=== PATIENT | female | born 1935 | race Caucasian/White ===

== ENCOUNTER 2016-04-30 | Emergency (ER) | payer MEDICARE, OTHER | END 2016-04-30 12:38 | disposition home or self-care (01) ==

== ENCOUNTER 2016-08-08 13:19 | Outpatient (CLI) | payer MEDICARE, OTHER ==
--- NOTE | 2016-08-09 17:09 | Mammography Report ---
DIGITAL SCREENING MAMMOGRAM: 08/08/2016 CLINICAL INDICATION: A 81-year-old nulliparous patient with history of benign biopsy for screening. COMPARISON: 07/2015, 01/2014, 07/2012, 07/2011, 05/2010, 03/2009, 03/2008, 03/2007. TECHNIQUE: Routine CC and MLO projections were obtained of the breasts. The breasts again demonstrate heterogeneously dense fibroglandular parenchyma bilaterally. Coarse an d punctate, typically benign calcifications are present. No suspicious masses, clustered microcalcif ications, or regions of architectural distortion are identified. IMPRESSION: BENIGN FINDINGS. RECOMMENDATION: ROUTINE ANNUAL SCREENING UNLESS OTHERWISE CLINICALLY INDICATED. BIRADS CATEGORY: 2, BENIGN FINDINGS. STANDARD QUALIFYING STATEMENTS 1. This examination was reviewed with the aid of Computed-Aided Detection (CAD). 2. A negative or benign imaging report should not delay biopsy if clinically suspicious findings are present. Consider surgical consultation if warranted. More than 5% of cancers are not identified b y imaging. 3. Dense breasts may obscure an underlying neoplasm. JOB #: [id number] EXT [id number] #:[id number]
== END 2016-08-08 13:20 | disposition home or self-care (01) ==
LOC: DI.S 13:19
PROVIDERS: ATTEND Physician Assistant
DX: Z12.31 Encounter for screening mammogram for malignant neoplasm of breast (principal)
CPT/HCPCS: 77067

== ENCOUNTER 2017-05-29 07:17 | Outpatient (CLI) | payer MEDICARE, OTHER ==
--- NOTE | 2017-05-29 17:58 | MRI Report ---
EXAM: RIGHT SHOULDER MRI WITHOUT CONTRAST EXAM DATE: 05/29/2017 09:01 AM. CLINICAL HISTORY: Shoulder pain and decreased range of motion. Concern for biceps tendon tear. COMPARISON: None. TECHNIQUE: Multiplanar, multisequence T1-weighted and fluid-sensitive sequences of the shoulder witho ut contrast. Other: None. FINDINGS: Rotator Cuff: Full thickness tear of the distal supraspinatus at and adjacent to the insertion. The f ull-thickness component measures approximately 0.8 cm anteroposterior and 1.1 cm medial to lateral. M ore extensive associated distal articular surface component measuring 1.7 cm anteroposterior and 0.5 cm medial to lateral. Moderate edema and thickening involving distal fibers of the supraspinatus, upp er infraspinatus, and upper subscapularis. Minimal atrophy involving the supraspinatus. No significan t rotator cuff muscle fatty replacement. Long Head Biceps Tendon: The long head biceps tendon appears torn and retracted. On axial images the upper margin of the torn retracted tendon is located approximately 7.5 cm below the roof of the bicip ital groove. There is an ill-defined fragment of the biceps tendon retaining attachment at the superi or labrum. This is a somewhat globular area of soft tissue signal that measures approximately 1.0 x 0 .9 x 0.5 cm. Labrum: Degenerative appearance of the superior labrum. No discrete labral tear is demonstrated. Bones and Articular Surfaces: Mild cartilage thinning over some areas of the humeral head. No full th ickness articular cartilage defects. Acromioclavicular Joint: Moderate degenerative change with osteophyte formation, bone and capsular hy pertrophy. Type II acromion. Subacromial enthesophyte formation. IMPRESSION: 1. Full-thickness tear of the distal supraspinatus measuring 0.8 x 1.1 cm. 2. Moderate tendinosis involving the supraspinatus, upper fibers of the infraspinatus and subscapular is. 3. Tear of the long head biceps tendon retracted 7.5 cm below the roof of the bicipital groove. Fragm ent of the tendon appears to retain attachment at the biceps anchor. 4. Moderate degenerative change at the acromioclavicular joint. [facility] MUSCULOSKELET[facility]IOLOG[facility] SECTION Referring Provider Line: [phone] SITE ID: [id number]
--- NOTE | 2017-05-29 22:05 | MRI Report ---
EXAM: LEFT SHOULDER MRI WITHOUT CONTRAST EXAM DATE: 05/29/2017 09:01 AM. CLINICAL HISTORY: Left shoulder pain and decreased range of motion. COMPARISON: None. TECHNIQUE: Multiplanar, multisequence T1-weighted and fluid-sensitive sequences of the shoulder witho ut contrast. Other: None. FINDINGS: Acromioclavicular Region: The acromion is type II. There are enthesophytes at the inferior surface of the acromion. Mild to moderate acromioclavicular joint osteoarthritis. The coracoacromial and coraco clavicular ligaments are intact. Small amount fluid within the subacromial/subdeltoid bursa. There is an approximately 1.7 x 2.0 x 0.4 cm focus of tissue within the anterior aspect of the subdeltoid bur sa. Glenohumeral Region: No subluxation. Small joint effusion. The articular cartilage is unremarkable. T he glenohumeral ligaments and joint capsule are unremarkable. Bone Marrow: Mild subcortical marrow edema at the greater tuberosity. No acute fracture or bone lesio ns. Labrum: Degenerative free edge fraying at the superior labrum. No definite tear is seen on this non-a rthrographic exam. Musculature/Rotator Cuff: There is an approximately 1.8 cm AP by 1.6 cm medial to lateral full-thickn ess, near full-width tear of the supraspinatus tendon. Tendinosis at the remaining supraspinatus tend on. Infraspinatus tendinosis. Teres minor tendon is unremarkable. Distal subscapularis tendinosis. Gr anders 1 fatty atrophy of supraspinatus, infraspinatus, and subscapularis muscles. Biceps Tendon: Tendinosis at the proximal end of the long head biceps tendon. High-grade partial tear within the remaining long head biceps tendon. Other: The subcutaneous tissues are unremarkable. IMPRESSION: 1. A 1.8 x 1.6 cm full-thickness, near full-width tear of the supraspinatus tendon. Tendinosis at the remaining supraspinatus, infraspinatus, and distal subscapularis tendons. Grade 1 fatty atrophy of t he supraspinatus, infraspinatus, and subscapularis muscles. 2. Mild to moderate acromioclavicular joint osteoarthritis. 3. Small amount of fluid at the subacromial subdeltoid bursa. There is a 1.7 x 2.0 x 0.4 cm focus of tissue within the anterior aspect of the subdeltoid bursa which may represent focal synovial thickeni ng or debris. 4. Degenerative free edge fraying of the superior labrum. 5. Tendinosis at the proximal end of the long head biceps tendon and high-grade partial tear within t he remaining long head biceps tendon. [facility] MUSCULOSKELET[facility]IOLOGY SECTION Referring Provider Line: [phone] SITE ID: [id number]
== END 2017-05-29 07:18 | disposition home or self-care (01) ==
LOC: DI 07:17
PROVIDERS: ATTEND Physician Assistant
DX: M75.101 Unspecified rotator cuff tear or rupture of right shoulder, not specified as traumatic (principal); S46.111A Strain of muscle, fascia and tendon of long head of biceps, right arm, initial encounter; M19.011 Primary osteoarthritis, right shoulder; M67.911 Unspecified disorder of synovium and tendon, right shoulder; M75.102 Unspecified rotator cuff tear or rupture of left shoulder, not specified as traumatic; M19.012 Primary osteoarthritis, left shoulder; S46.112A Strain of muscle, fascia and tendon of long head of biceps, left arm, initial encounter; M67.912 Unspecified disorder of synovium and tendon, left shoulder

== ENCOUNTER 2017-07-02 07:44 | Emergency (ER) | payer MEDICARE, OTHER ==
[2017-07-02] MEDS ORDERED: SODIUM CHLORIDE 0.9% 1,000 ML IV ONE (08:07)
--- NOTE | 2017-07-02 08:10 | ED Physician Documentation ---
History of Present Illness - Stated complaint Stated Complaint: WEAKNESS - Chief complaint Chief Complaint: General - History obtained from History obtained from: Patient, Friend - History of Present Illness Timing: Today - Additonal information Additional information: 82-year-old female was in her usual state of health yesterday feeling well and had a friend over had a glass of wine and some dinner and this morning when she woke up she felt weak and was noted to be pale by her friend. She states that in route to the hospital she vomited once she felt this was due to carsickness. The friend indicates that the patient has been down this road numerous times without ever having this bother her. The patient states that her alcohol consumption is infrequent and small volume. She does not recall exactly the last time that she had alcohol. She has not had reaction alcohols similar to this previously. She denies any other current illness she denies coffee grounds in the emesis that she had this morning. Review of Systems Constitutional: reports: Fatigue, Sweats. denies: Fever, Chills Eyes: denies: Decreased vision Ears: denies: Ear pain Nose: denies: Rhinorrhea / runny nose, Congestion Throat: denies: Sore throat Cardiac: denies: Chest pain / pressure, Palpitations Respiratory: denies: Dyspnea, Cough GI: reports: Nausea, Vomiting. denies: Abdominal Pain, Constipation, Diarrhea : denies: Dysuria, Frequency Skin: denies: Rash Musculoskeletal: denies: Neck pain, Back pain, Extremity pain Neurologic: reports: Generalized weakness. denies: Focal weakness, Numbness PD PAST MEDICAL HISTORY - Past Medical History Cardiovascular: High cholesterol Respiratory: None Endocrine/Autoimmune: None GI: Colon polyps : None HEENT: None Psych: Anxiety Musculoskeletal: None Derm: None - Past Surgical History Past Surgical History: Yes General: Cholecystectomy, Appendectomy, Colonoscopy /TRANSMISSION SPECIALIST: Other - Present Medications Home Medications: Ambulatory Orders Medication Instructions Recorded Confirmed Escitalopram [Lexapro] 10 mg PO DAILY 01/23/13 09/22/15 Trazodone HCl 25 mg PO HS 01/23/13 09/22/15 Cholecalciferol (Vitamin D3) 1,000 unit PO DAILY 09/21/15 09/22/15 [Vitamin D3] Meclizine HCl [Bonine] 25 mg PO DAILY 09/21/15 09/22/15 Multivitamin [Multivitamins] 1 each PO DAILY 09/21/15 09/22/15 Rosuvastatin Calcium [Crestor] 20 mg PO DAILY 09/21/15 09/22/15 Vitamin E 1,000 unit PO DAILY 09/21/15 09/22/15 - Allergies Allergies/Adverse Reactions: Allergies Allergy/AdvReac Type Severity Reaction Status Date / Time oxycodone HCl * Allergy Intermediate Nausea Verified 01/24/13 09:46 [From Percodan] oxycodone terephthalate * Allergy Intermediate Nausea Verified 01/24/13 09:46 [From Percodan] Sulfa (Sulfonamide Allergy Intermediate Rash Verified 01/24/13 12:35 Antibiotics) codeine [Codeine] AdvReac Intermediate Emesis Verified 01/24/13 09:46 oxycodone [Oxycodone] AdvReac Intermediate Emesis Verified 01/24/13 09:46 - Social History Does the pt smoke?: No Smoking Status: Never smoker Does the pt drink ETOH?: Yes Does the pt have substance abuse?: No - Immunizations Immunizations are current?: Yes PD ED PE NORMAL - Vitals Vital signs reviewed: Yes (Normal) - General General: Alert and oriented X 3, No acute distress, Well developed/nourished, Other (Pale appearing female in no distress) - HEENT HEENT: Atraumatic, PERRL, EOMI, Ears normal, Pharynx benign, Other (Dry mucous membranes) - Neck Neck: Supple, no meningeal sign, No bony TTP - Cardiac Cardiac: RRR, No murmur - Respiratory Respiratory: No respiratory distress, Clear bilaterally - Abdomen Abdomen: Soft, Non tender - Back Back: No CVA TTP, No spinal TTP - Derm Derm: Normal color, Warm and dry, No rash - Extremities Extremities: No deformity, Normal ROM s pain, No edema, No calf tenderness / cord - Neuro Neuro: Alert and oriented X 3, No motor deficit, No sensory deficit, Normal speech Eye Opening: Spontaneous Motor: Obeys Commands Verbal: Oriented GCS Score: 15 - Psych Psych: Normal mood, Normal affect Results - Vitals Vitals: Vital Signs - 24 hr 07/02/17 07/02/17 07:51 11:29 Temperature 35.5 C L 36.4 C L Heart Rate 62 57 L Respiratory 16 15 Rate Blood Pressure 121/65 141/76 H O2 Saturation 99 100 Oxygen O2 Source Room air - Labs Labs: Laboratory Tests 07/02/17 07/02/17 07/02/17 08:20 08:20 08:20 WBC 7.6 RBC 4.16 L Hgb 11.9 L Hct 35.6 L MCV 85.8 MCH 28.7 MCHC 33.5 RDW 15.2 H Plt Count 354 MPV 6.6 L Neut # 4.8 Lymph # 2.2 Trimble # 0.6 Eos # 0.1 Baso # 0.0 Absolute Nucleated RBC 0.00 Nucleated RBC % 0.0 Sodium 134 L Potassium 3.8 Chloride 100 L Carbon Dioxide 26 Anion Gap 8.0 BUN 28 H Creatinine 0.8 Estimated GFR (MDRD) 69 L Glucose 122 H Calcium 8.8 Total Bilirubin 0.5 AST 18 ALT 13 Alkaline Phosphatase 100 Troponin I < 0.04 Total Protein 7.8 Albumin 4.1 Globulin 3.7 Albumin/Globulin Ratio 1.1 Lipase 11 L Urine Color Urine Clarity Urine pH Ur Specific [place] Urine Protein Urine Glucose (UA) Urine Ketones Urine Occult Blood Urine Nitrite Urine Bilirubin Urine Urobilinogen Ur Leukocyte Esterase Ur Microscopic Review Urine Culture Comments Ethyl Alcohol < 5.0 07/02/17 10:50 WBC RBC Hgb Hct MCV MCH MCHC RDW Plt Count MPV Neut # Lymph # [place]ble # Eos # Baso # Absolute Nucleated RBC Nucleated RBC % Sodium Potassium Chloride Carbon Dioxide Anion Gap BUN Creatinine Estimated GFR (MDRD) Glucose Calcium Total Bilirubin AST ALT Alkaline Phosphatase Troponin I Total Protein Albumin Globulin Albumin/Globulin Ratio Lipase Urine Color YELLOW Urine Clarity CLEAR Urine pH 7.0 Ur Specific [place] 1.020 Urine Protein NEGATIVE Urine Glucose (UA) NEGATIVE Urine Ketones NEGATIVE Urine Occult Blood TRACE-LYSE Urine Nitrite NEGATIVE Urine Bilirubin NEGATIVE Urine Urobilinogen 0.2 (NORMAL) Ur Leukocyte Esterase NEGATIVE Ur Microscopic Review NOT INDICATED Urine Culture Comments NOT INDICATED Ethyl Alcohol Procedures - IVC sono (time) 0805 Bedside IVC sono: IVC measures (cm) (0.88), IVC collapsed c insp (cm) (complete) , Dehydration (ext 2 liter deficit) PD MEDICAL DECISION MAKING - ED course Complexity details: reviewed old records, reviewed results, re-evaluated patient , considered differential, d/w patient, d/w family ED course: 82-year-old female with a chief complaint of weakness arrives to the emergency department appearing pale and with a history of a consumption of a small amount of wine last night. She is found to be dehydrated on interrogation of the inferior vena cava and IV is begun and fluids are administered. No specific findings with the exception of an elevated BUN are found. Her symptoms are consistent with dehydration and she is hydrated here in the Ed./ Departure - Departure Disposition: 01 Home, Self Care Clinical Impression: Dehydration Condition: Stable Instructions: ED Dehydration Follow-Up: Mayelin Chaney PA [Primary Care Provider] - Discharge Date/Time: 07/02/17 11:34
[2017-07-02 08:33] LABS: BASOPHILS % (AUTO) 0.3 %; EOSINOPHILS # (AUTO) 0.1 10^3/uL (0.0-0.7); EOSINOPHILS % (AUTO) 0.8 %; HGB - HEMOGLOBIN 11.9 g/dL (12.0-16.0); LYMPHOCYTES # (AUTO) 2.2 10^3/uL (1.5-3.5); LYMPHOCYTES % (AUTO) 28.6 %; MEAN CORPUSCULAR HEMOGLOBIN 28.7 pg (27.0-31.0); MEAN CORPUSCULAR HGB CONC 33.5 g/dL (32.0-36.0); MEAN CORPUSCULAR VOLUME 85.8 fL (81.0-99.0); MEAN PLATELET VOLUME 6.6 fL (7.9-10.8); MONOCYTES # (AUTO) 0.6 10^3/uL (0.0-1.0); NEUTROPHILS # (AUTO) 4.8 10^3/uL (1.5-6.6); NEUTROPHILS % (AUTO) 62.3 %; PLT - PLATELET COUNT 354 10^3/uL (130-450); RED BLOOD COUNT 4.16 10^6/uL (4.20-5.40); RED CELL DISTRIBUTION WIDTH 15.2 % (12.0-15.0); WHITE BLOOD COUNT 7.6 x10^3/uL (4.8-10.8)
[2017-07-02 08:44] LABS: ALBUMIN 4.1 g/dL (3.2-5.5); ALBUMIN/GLOBULIN RATIO 1.1 (1.0-2.2); ALKALINE PHOSPHATASE 100 IU/L (42-121); ALT ALANINE AMINOTRANSFERASE 13 IU/L (10-60); AST ASPARTATE AMINOTRANSFERASE 18 IU/L (10-42); BILIRUBIN,TOTAL 0.5 mg/dL (0.2-1.0); BUN - BLOOD UREA NITROGEN 28 mg/dL (6-20); CALCIUM 8.8 mg/dL (8.5-10.3); CARBON DIOXIDE - CO2 26 mmol/L (21-32); CHLORIDE 100 mmol/L (101-111); CREATININE 0.8 mg/dL (0.4-1.0); GFR - MDRD 69 (>89); GLUCOSE 122 mg/dL (70-100); LIPASE 11 U/L (22-51); SODIUM 134 mmol/L (135-145); TOTAL PROTEIN 7.8 g/dL (6.7-8.2)
[2017-07-02] MEDS ORDERED: SODIUM CHLORIDE 0.9% 500 ML IV ONE (10:12)
[2017-07-02 11:00] LABS: BILIRUBIN,URINE NEGATIVE (NEGATIVE); GLUCOSE, URINE (UA) NEGATIVE (NEGATIVE); KETONES,URINE (UA) NEGATIVE (NEGATIVE); LEUKOCYTE ESTERASE, URINE NEGATIVE (NEGATIVE); NITRITE,URINE NEGATIVE (NEGATIVE); OCCULT BLOOD,URINE TRACE-LYSE (NEGATIVE); PROTEIN,URINE NEGATIVE (NEGATIVE); UROBILINOGEN,URINE 0.2 (NORMAL) E.U./dL (NORMAL)
[2017-07-02 11:02] LABS: CLARITY,URINE CLEAR (CLEAR)
[2017-07-02 11:34] VITALS: BP 141/76
== END 2017-07-02 11:34 | disposition home or self-care (01) ==
LOC: ED 07:44
DX: E86.0 Dehydration (principal); E78.00 Pure hypercholesterolemia, unspecified
CPT/HCPCS: 36415; 80053; 81003; 83690; 84484; 85025; 96360; 99283; 99284; G0480; 80320; 81001; 87086

== ENCOUNTER 2017-08-27 08:13 | Outpatient (CLI) | payer MEDICARE, OTHER ==
--- NOTE | 2017-08-28 11:03 | Mammography Report ---
BILATERAL SCREENING MAMMOGRAM: 08/27/2017 TECHNIQUE: Bilateral digital CC, exaggerated CC and MLO projections. COMPARISON: 08/08/2016, 08/03/2015, 02/03/2014 and 07/24/2012. FINDINGS: The breast tissue is heterogeneously dense. No dominant mass, architectural distortion, skin thickening, suspicious microcalcifications or interval change. IMPRESSION: NEGATIVE. BI-RADS CODE 1-NEGATIVE. SUGGEST RETURN TO ROUTINE SCREENING IN 12 MONTHS. STANDARD QUALIFYING STATEMENTS: 1. This examination was reviewed with the aid of Computer-Aided Detection (CAD). 2. A negative or benign imaging report should not delay biopsy if clinically suspicious findings are present. Consider surgical consultation if warranted. More than 5% of cancers are not identified by imaging. 3. Dense breasts may obscure an underlying neoplasm. TD: 08/28/2017 10:00
== END 2017-08-27 08:14 | disposition home or self-care (01) ==
LOC: DI.S 08:13
PROVIDERS: ATTEND Physician Assistant
DX: Z12.31 Encounter for screening mammogram for malignant neoplasm of breast (principal)
CPT/HCPCS: 77067

== ENCOUNTER 2018-08-27 07:37 | Outpatient (CLI) | payer MEDICARE, OTHER ==
--- NOTE | 2018-08-27 08:37 | Mammography Report ---
Reason: SCREENING MAMMO Procedure Date: 08/27/2018 Accession Number: [id number] / [id number] Procedure: M[facility] - Screening Mammo w/Héctor CPT Code: FULL RESULT: EXAM: Screening Mammo w/Héctor DATE: 08/27/2018 8:31 AM CLINICAL HISTORY: Screening encounter. History of early menses and nulliparity. TECHNIQUE: (B) - Bilateral CC and MLO views were obtained. A right laterally exaggerated CC views obtained. COMPARISON: 08/27/2017 through 02/03/2014. PARENCHYMAL PATTERN: (A) - The breast(s) demonstrate(s) scattered fibroglandular densities. FINDINGS: There are coarse typically benign calcifications. There are no suspicious masses, calcifications, or areas of distortion. IMPRESSION: Benign findings. BI-RADS category 2. RECOMMENDATION: (ANNUAL) - Recommend routine annual screening mammography. BI-RADS CATEGORY: (2) - Benign Findings. STANDARD QUALIFYING STATEMENTS: 1. This examination was not reviewed with the aid of Computer-Aided Detection (CAD). 2. A negative or benign imaging report should not preclude biopsy if clinically suspicious findings are present. 3. Dense breasts may obscure an underlying neoplasm. 4. This examination was reviewed with the aid of 3D breast imaging (tomosynthesis).
== END 2018-08-27 07:38 | disposition home or self-care (01) ==
LOC: DI 07:37
DX: Z12.31 Encounter for screening mammogram for malignant neoplasm of breast (principal)
CPT/HCPCS: 77063; 77067

== ENCOUNTER 2019-07-13 09:44 | Outpatient (CLI) | payer MEDICARE, OTHER ==
--- NOTE | 2019-07-13 12:41 | Ultrasound Report ---
Reason: RT KNEE PAIN Procedure Date: 07/13/2019 Accession Number: [id number] / [id number] Procedure: US - Duplex Ext Veins Right CPT Code: Final Report FULL RESULT: EXAM: RIGHT LOWER EXTREMITY VENOUS ULTRASOUND EXAM DATE: 07/13/2019 10:15 AM. CLINICAL HISTORY: RT KNEE PAIN. COMPARISON: KNEE 3 VIEW RT 07/13/2019 10:13 AM. TECHNIQUE: Real-time sonographic vascular imaging was performed by the assistant food service director through the lower extremity utilizing both color-flow and Doppler spectral analysis. Multiple sales representative electric service static images were saved for review. FINDINGS: Common Femoral Vein (CFV): Normal. CFV-GSV Junction: Normal. Profunda Femoral Vein (PFV): Normal. Femoral Vein (FV) Prox: Normal. Femoral Vein (FV) Mid: Normal. Femoral Vein (FV) Dist: Normal. Popliteal Vein: Normal. Posterior Tibial Veins: Normal. Peroneal Veins: Normal. Contralateral Side CFV: Normal. Other: None. IMPRESSION: No evidence for deep venous thrombosis. [facility]
--- NOTE | 2019-07-13 13:42 | XRAY Report ---
Reason: RT KNEE PAIN Procedure Date: 07/13/2019 Accession Number: [id number] / [id number] Procedure: XR - Knee 3 View RT CPT Code: Final Report FULL RESULT: EXAM: RIGHT KNEE RADIOGRAPHY EXAM DATE: 07/13/2019 10:21 AM. CLINICAL HISTORY: RT KNEE PAIN. COMPARISON: DUPLEX EXT VEINS RIGHT 07/13/2019 9:48 AM. TECHNIQUE: 3 views. FINDINGS: Bones: Normal. No fractures or bone lesions. Joints: Joint spaces are preserved on nonweightbearing radiographs. No osteophyte formation. No subchondral cyst or sclerosis. Mild medial and lateral meniscal chondrocalcinosis. No joint effusion. No subluxation. Soft Tissues: Normal. No soft tissue swelling. 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 [facility]
== END 2019-07-13 09:45 | disposition home or self-care (01) ==
LOC: DI 09:44
PROVIDERS: ATTEND Registered Nurse
DX: M11.261 Other chondrocalcinosis, right knee (principal)

== ENCOUNTER 2019-07-30 08:21 | Outpatient (CLI) | payer MEDICARE ==
--- NOTE | 2019-07-30 13:54 | MRI Report ---
Reason: RIGHT KNEE PAIN Procedure Date: 07/30/2019 Accession Number: [id number] / [id number] Procedure: MRI - Knee RT W/O CPT Code: Final Report FULL RESULT: EXAM: RIGHT KNEE MRI WITHOUT CONTRAST EXAM DATE: 07/30/2019 09:18 AM. CLINICAL HISTORY: Anterior and medial knee pain x2 weeks. No specific injury. COMPARISON: KNEE 3 VIEW RT 07/13/2019 10:13 AM. TECHNIQUE: Multiplanar, multisequence T1-weighted and fluid-sensitive sequences of the knee without contrast. Other: None. FINDINGS: Ligaments: The anterior cruciate, posterior cruciate, and medial collateral ligaments are normal. There is mild increased signal in the proximal lateral collateral ligament at the femoral origin with adjacent subcortical cysts immediately deep to the lateral collateral ligament origin, probably sequela of old low-grade LCL sprain. No laxity or discontinuity to indicate high-grade tear. Patellofemoral compartment: Moderate high-grade thinning of the central and medial retropatellar cartilage slightly above the level of the patellar equator, small portions of which are full thickness with minimal subjacent marrow edema. Trochlear cartilage is preserved. No significant patellofemoral osteoarthritis. Patellofemoral alignment is anatomic. The distal quadriceps and patellar tendons are normal. The medial and lateral patellofemoral retinacula are normal. Medial compartment: There is truncation of the free edge of the posterior horn of the medial meniscus at and slightly medial to the posterior horn root consistent with tear. The remainder of the medial meniscus is intact. Mild partial thickness chondromalacia of the weightbearing surfaces of the medial femoral condyle and medial tibial plateau. No significant medial compartment osteoarthritis. There is diffuse subchondral marrow edema in the medial tibial plateau which surrounds a small semicircular focus of low T1/low T2 signal in the central subchondral aspect of the medial tibial plateau. 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 Marrow signal in the medial femoral condyle is normal. Lateral compartment: Minimal fraying of the tip of the free edge of the peripheral body of the lateral meniscus. No lateral meniscal tear. Incidental partial diskoid lateral meniscal morphology. Lateral compartment cartilage is preserved. No lateral compartment osteoarthritis. Soft tissues: No significant knee effusion. A minuscule popliteal cyst is present. Increased signal in the distal popliteus tendon extending to its femoral insertion is consistent with tendinosis. IMPRESSION: 1. Subchondral insufficiency fracture of the medial tibial plateau. 2. Truncation of the free edge of the posterior horn of the medial meniscus at and slightly medial to the posterior horn root consistent with meniscal tear. Mild partial thickness medial femoral condyle and medial tibial plateau chondromalacia without osteoarthritis. 3. Minimal fraying of the tip of the free edge of the peripheral body of the lateral meniscus. No galdino lateral meniscal tear. Intact lateral compartment cartilage without osteoarthritis. 4. Mild to moderate chondromalacia patella with minimal subjacent marrow signal changes but no marginal osteophyte formation. Femoral trochlear cartilage is preserved. 5. Tendinosis of the distal popliteus tendon extending to its femoral insertion. 6. Mild increased signal in the proximal lateral collateral ligament probably reflect sequela of old low-grade partial tear. The remaining ligaments are normal. [facility]
--- NOTE | 2019-07-30 17:41 | XRAY Report ---
Reason: PAIN IN LEFT KNEE Procedure Date: 07/30/2019 Accession Number: [id number] / [id number] Procedure: XR - Knee 3 View LT CPT Code: Final Report FULL RESULT: EXAM: LEFT KNEE RADIOGRAPHY EXAM DATE: 07/30/2019 09:28 AM. CLINICAL HISTORY: PAIN IN LEFT KNEE. COMPARISON: KNEE 3 VIEW RT 07/13/2019 10:13 AM. TECHNIQUE: 3 views. FINDINGS: Bones: No fracture or focal bony lesion. Joints: No evidence of dislocation. Joint spacing is maintained. There is chondrocalcinosis. No evidence of joint effusion. Soft Tissues: No unexpected soft tissue findings. IMPRESSION: 1. No fracture or dislocation. 2. There is chondrocalcinosis. 3. Joint spacing is maintained. 4. No evidence of joint effusion. [facility]
== END 2019-07-30 08:22 | disposition home or self-care (01) ==
LOC: DI 08:21
PROVIDERS: ATTEND Registered Nurse
DX: M84.461A Pathological fracture, right tibia, initial encounter for fracture (principal); M94.261 Chondromalacia, right knee; M67.961 Unspecified disorder of synovium and tendon, right lower leg; M11.262 Other chondrocalcinosis, left knee

== ENCOUNTER 2019-09-02 07:54 | Outpatient (CLI) | payer MEDICARE ==
--- NOTE | 2019-09-02 08:52 | DEXA Report ---
Reason: PATH FRACT DUE TO OSTEOPOROSIS Procedure Date: 09/02/2019 Accession Number: [id number] / [id number] Procedure: DEX - Dexa Spine and/or Hip CPT Code: Final Report FULL RESULT: PROCEDURE: Dexa Spine and/or Hip INDICATIONS: PATH FRACT DUE TO OSTEOPOROSIS TECHNIQUE: Dual energy x-ray absorptiometry (DXA) was performed on a ModusP System. Regions measured are the AP Spine, femoral neck, and if needed forearm. COMPARISON: None. FINDINGS: Lumbar Spine: Bone Mineral Density 1.017 g/cm/cm,T score -1.4, Left Femoral Neck: Bone Mineral Density 0.787 g/cm/cm, T score -1.7, (T score greater or equal to -1.0: NORMAL) (T score from -1.1 to -2.4: OSTEOPENIA) (T score less than or equal to -2.5 to: OSTEOPOROSIS) Impression: Osteopenia Patients with diagnosis of osteoporosis or osteopenia should have regular bone mineral density assessment. For those eligible for Medicare, routine testing is allowed once every 2 years. Testing frequency can be increased for patients who have rapidly progressing disease or for those who are receiving medical therapy to restore bone mass. Reviewed by: Shahram Wan MD on 09/02/2019 8:49 AM PDT Approved by: Shahram Wan MD on 09/02/2019 8:49 AM PDT Station ID: [id number]
--- NOTE | 2019-09-02 09:25 | XRAY Report ---
Reason: CLOSED FRACTURE OF TIBIAL PLATEAU,RIGHT Procedure Date: 09/02/2019 Accession Number: [id number] / [id number] Procedure: XR - Knee 3 View RT CPT Code: Final Report FULL RESULT: PROCEDURE: Knee 3 View RT INDICATIONS: CLOSED FRACTURE OF TIBIAL PLATEAU,RIGHT TECHNIQUE: 3 views of the right knee(s) were acquired. COMPARISON: Right knee radiographs dated 07/13/2019. MRI right knee dated 07/30/2019 FINDINGS: Bones: No displaced or discrete fractures . No suspicious bony lesions. Chondrocalcinosis projecting in the medial lateral compartments. Scattered subchondral sclerosis and spurring. Minimal medial joint space narrowing BB projecting at the anterior aspect of the proximal tibia Soft tissues: No joint effusion. No suspicious soft tissue calcifications. IMPRESSION: Mild joint degeneration, without interval change Chondrocalcinosis No displaced fracture radiographically identified Reviewed by: Shahram Wan MD on 09/02/2019 9:23 AM PDT Approved by: Shahram Wan MD on 09/02/2019 9:23 AM PDT Station ID: [id number]
== END 2019-09-02 07:55 | disposition home or self-care (01) ==
LOC: DI 07:54
PROVIDERS: ATTEND Registered Nurse
DX: M85.89 Other specified disorders of bone density and structure, multiple sites (principal); S82.131D Displaced fracture of medial condyle of right tibia, subsequent encounter for closed fracture with routine healing; M17.11 Unilateral primary osteoarthritis, right knee
CPT/HCPCS: 77080

== ENCOUNTER 2019-11-16 13:22 | Outpatient (CLI) | payer MEDICARE ==
--- NOTE | 2019-11-16 17:42 | XRAY Report ---
PROCEDURE: Knee Standing BILAT INDICATIONS: KNEE PAIN TECHNIQUE: 3 views of the right knee, and 3 views of the left knee. COMPARISON: None. FINDINGS: Bones: No acute fractures or dislocations. No suspicious bony lesions. Mild to moderate bilateral k nee tricompartmental osteoarthritis with marginal osteophytosis. Soft tissues: Trace left knee suprapatellar joint effusion. Chondrocalcinosis noted in the lateral co mpartment of the right knee. IMPRESSION: 1. 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 2. Right knee lateral compartment chondrocalcinosis. 3. Trace left knee joint effusion. 4. No acute osseous lesion. If there is continued clinical concern for pathology, then advanced imagi ng (CT, MR, bone scan) should be considered for further evaluation. Reviewed by: Paige Bahena MD, PhD on 11/16/2019 5:40 PM PDT Approved by: Paige Bahena MD, PhD on 11/16/2019 5:40 PM PDT Station ID: [id number]
== END 2019-11-16 13:23 | disposition home or self-care (01) ==
LOC: DI.S 13:22
PROVIDERS: ATTEND Orthopaedic Surgery
DX: M17.0 Bilateral primary osteoarthritis of knee (principal); M11.261 Other chondrocalcinosis, right knee; M25.462 Effusion, left knee
CPT/HCPCS: 73565

== ENCOUNTER 2021-09-26 13:22 | Outpatient (CLI) | payer MEDICARE ==
--- NOTE | 2021-10-04 08:11 | Mammography Report ---
BILATERAL DIGITAL SCREENING MAMMOGRAM 3D/2D: 09/26/2021 CLINICAL: Routine screening. Comparison is made to exams dated: 08/27/2018 mammogram, 08/27/2017 mammogram, 08/08/2016 mammogram, and 08/03/2015 mammogram - [facility]. There are scattered fibroglandular elements in b oth breasts. There is a possible new 0.4 cm equal density focal asymmetry in the left breast at 5 o'clock anterior depth. No other significant masses, calcifications, or other findings are seen in either breast. IMPRESSION: INCOMPLETE: NEEDS ADDITIONAL IMAGING EVALUATION The possible new 0.4 cm equal density focal asymmetry in the left breast is indeterminate. Additiona l views with possible ultrasound are recommended. Based on the Tyrer Cuzick model (a risk assessment model) the patients lifetime risk is 0.2% and her 10 year risk is 0.0%. According to the ACR, ACS, and NCCN guidelines, an annual breast MRI exam gladis g with mammogram is recommended if the patients lifetime risk is 20% or greater. This exam was interpreted at Station ID: [id number]. NOTE: For mammograms, a report in lay terms will be sent to the patient. Approximately 15% of breast malignancies will not be visualized mammographically. In the management of a palpable breast mass, a negative mammogram must not discourage biopsy of a clinically suspicious lesion. Electronically Signed By: Everardo Patel M.D. aty/:10/03/2021 13:40:11 ACR BI-RADS Category 0: Incomplete 3340F PARENCHYMAL PATTERN: (A) - The breast(s) demonstrate(s) scattered fibroglandular densities. BI-RADS CATEGORY: (0) - 0 Mammo and [place] [id number] Immediate follow-up LATERALITY: (L)
== END 2021-09-26 13:23 | disposition home or self-care (01) ==
LOC: DI 13:22
PROVIDERS: ATTEND Nurse Practitioner Family
DX: Z12.31 Encounter for screening mammogram for malignant neoplasm of breast (principal); R92.8 Other abnormal and inconclusive findings on diagnostic imaging of breast

== ENCOUNTER 2022-01-17 11:02 | Outpatient (CLI) | payer MEDICARE ==
--- NOTE | 2022-01-17 18:06 | XRAY Report ---
PROCEDURE: Knee 3 View LT INDICATIONS: XRAY TECHNIQUE: 3 views of the left knee(s) were acquired. COMPARISON: 11/16/2019 FINDINGS: Bones: Mildly decreased mineralization. Minimal joint space loss. No significant marginal spurring. Normal bone alignment. No suspicious bone lesions. Soft tissues: Small joint effusion. There is faint lateral compartment chondrocalcinosis, slightly p rogressed compared to the prior study. Chronic wispy calcifications along the posterior joint capsule . IMPRESSION: 1. Small joint effusion, increased compared to prior. 2. Findings of chondrocalcinosis in the lateral compartment. Consider CPPD or hemachromatosis. Reviewed by: Sobia Brown MD on 01/17/2022 5:05 PM [facility] Approved by: Sobia Brown MD on 01/17/2022 5:05 PM [facility] Station ID: [id number]
== END 2022-01-17 11:03 | disposition home or self-care (01) ==
LOC: DI.S 11:02
PROVIDERS: ATTEND Physician Assistant
DX: M25.462 Effusion, left knee (principal); M11.262 Other chondrocalcinosis, left knee

== ENCOUNTER 2022-05-14 08:39 | Outpatient (CLI) | payer MEDICARE ==
--- NOTE | 2022-05-14 11:52 | MRI Report ---
PROCEDURE: KNEE WO - LT INDICATIONS: PAIN IN LEFT KNEE TECHNIQUE: Noncontrast sagittal PD fast spin echo and T2 fast spin echo with fat saturation, sagittal 3-D gradie nt sequence with fat saturation; coronal T1 spin echo and PD fast spin echo with fat saturation, and axial PD fast spin echo with fat saturation through the knee. COMPARISON: Left knee radiograph dated 01/17/2022. FINDINGS: Image quality: Excellent. Menisci: There is oblique tear involving posterior horn of medial meniscus extending to inferior marc culating surface. Complex oblique tear also seen involving anterior horn of lateral meniscus extendin g to inferior articulating surface. The meniscal root ligaments appear intact. Cruciate ligaments: The anterior cruciate ligament is thickened. The posterior cruciate ligament is intact. Medial structures: The medial collateral ligament appears markedly thickened with intrasubstance T2 hyperintense signal and surrounding soft tissue edema. The posterior oblique ligament, semimembranos us tendon insertions, and oblique popliteal ligament, and meniscocapsular junction appear intact. Vi sualized portions of the pes anserinus tendons appear normal. No abnormal bursal fluid. Lateral structures: The lateral collateral ligament, long and short heads of the biceps femoris tend on appear intact. The popliteus tendon appears normal; the popliteofibular ligament appears intact. Iliotibial band appears normal. Anterior structures: Distal quadriceps tendinosis at its superior patella insertion is seen. Proximal patella tendinosis at its inferior patella insertion is also noted. Patellar alignment is normal. N o femoral trochlear dysplasia or ventral trochlear prominence. No edema in the infrapatellar fat pad . Bones and cartilage: Large osteochondral injury involving weight-bearing portion of medial femoral co ndyle is seen measures up to 1.3 x 2.4 x 0.5 cm in size with inferiorly displaced necrotic fragment a nd extensive marrow edema throughout medial femoral condyle. Mild edema is also seen in the adjacent weightbearing portion of medial tibial plateau without discrete fracture line. Moderate tricompartmen eliza osteoarthritis and chondromalacia is seen most notably in medial femoral tibial compartment. Joint space: There is moderate knee joint fluid. There is suggestion of a collapsed Watt's cyst karolina sures up to 1.8 x 1.9 cm in size with fluid extending along proximal medial head of gastrocnemius mus ranjith. Normal appearing synovial plicae are incidentally noted. IMPRESSION: 1. Large osteochondral lesion involving weight-bearing portion of medial femoral condyle measures up to 1.3 x 2.4 x 0.5 cm in size with extensive adjacent marrow edema involving medial femoral condyle a nd slightly inferior displacement of the osseous fragment. Contusion in adjacent weight-bearing porti on of medial tibial plateau is seen without discrete fracture line. Moderate tricompartmental osteoar thritis and chondromalacia most notably medial femoral tibial compartment. 2. Oblique tear involving posterior horn of medial meniscus extending to inferior articulating surfac e. Complex oblique tear involving anterior horn of lateral meniscus extending to inferior articulatin g surface. 3. Low-grade ACL sprain. No ACL rupture. PCL is intact. 4. Moderate grade MCL sprain/partial thickness tear. 5. Distal quadriceps tendinosis and proximal patella tendinosis as above. 6. Moderate amount of joint effusion, no gross loose bodies. Suggestion of a collapsed Watt's cyst a s above. Reviewed by: David Flores MD on 05/14/2022 11:51 AM PST Approved by: David Flores MD on 05/14/2022 11:51 AM PST Station ID: [id number]
== END 2022-05-14 08:40 | disposition home or self-care (01) ==
LOC: DI 08:39
PROVIDERS: ATTEND Registered Nurse
DX: S80.12XA Contusion of left lower leg, initial encounter (principal); M89.9 Disorder of bone, unspecified; M17.12 Unilateral primary osteoarthritis, left knee; M94.262 Chondromalacia, left knee; S83.242A Other tear of medial meniscus, current injury, left knee, initial encounter; S83.272A Complex tear of lateral meniscus, current injury, left knee, initial encounter; S83.512A Sprain of anterior cruciate ligament of left knee, initial encounter; S83.412A Sprain of medial collateral ligament of left knee, initial encounter; M25.462 Effusion, left knee

== ENCOUNTER 2022-05-24 09:58 | Outpatient (CLI) | payer MEDICARE ==
--- NOTE | 2022-05-24 15:31 | XRAY Report ---
PROCEDURE: Knee 3 View LT INDICATIONS: LEFT KNEE PAIN TECHNIQUE: 3 views of the left knee(s) were acquired. COMPARISON: MR knee 05/14/2022, x-ray knee 01/17/2022 FINDINGS: Bones: Previous osteochondral defect identified on MRI within the medial compartment demonstrates a very questionable appearance of lucency within the distal aspect of the femoral condyle compared to p rior x-ray exam of 01/17/2022. There is no progressive loss of joint space. No suspicious bony lesion s. Soft tissues: No joint effusion. No suspicious soft tissue calcifications. Chondrocalcinosis is p resent. IMPRESSION: Questionable development of small femoral condylar lucency at site of osteochondral defe ct which was identified on prior MRI exam. Continued x-ray follow-up is recommended. Reviewed by: Karena Damian MD on 05/24/2022 3:30 PM PST Approved by: Karena Damian MD on 05/24/2022 3:30 PM [facility] Station ID: [id number]
== END 2022-05-24 10:33 | disposition home or self-care (01) ==
LOC: DI.WOS 09:58
PROVIDERS: ATTEND Physician Assistant Surgical
DX: M25.562 Pain in left knee (principal)

== ENCOUNTER 2022-06-28 07:00 | Outpatient (CLI) | payer MEDICARE ==
--- NOTE | 2022-06-29 07:07 | XRAY Report ---
PROCEDURE: Ribs w/PA Chest LT INDICATIONS: LEFT CHEST PAIN TECHNIQUE: 2 views of the left ribs were acquired, along with a single view chest. COMPARISON: None. FINDINGS: Surgical changes and devices: None. Bones and chest wall: No fractures or dislocations. No suspicious bony lesions. Overlying soft tis sues appear unremarkable. Lungs and pleura: No pleural effusions or pneumothorax. Lungs appear clear. Mediastinum: Mediastinal contours appear normal. Heart size is normal. IMPRESSION: No displaced rib fractures. Reviewed by: Rafal Chan MD on 06/28/2022 1:33 PM PDT Approved by: Rafal Chan MD on 06/28/2022 1:33 PM PDT Station ID: [id number]
== END 2022-06-28 23:59 | disposition home or self-care (01) ==
LOC: DI.S 07:00
PROVIDERS: ATTEND Emergency Medicine
DX: R07.89 Other chest pain (principal)

== ENCOUNTER 2022-06-30 08:08 | Outpatient (CLI) | payer MEDICARE ==
--- NOTE | 2022-07-02 09:06 | MRI Report ---
PROCEDURE: BRAIN WO INDICATIONS: MILD COGNITIVE DISORDER TECHNIQUE: Noncontrast axial T1 spin echo, axial T2 fast spin echo, sagittal and axial FLAIR, coronal T2 fast sp in echo, axial gradient echo, axial diffusion and ADC through the brain. COMPARISON: None. FINDINGS: Image quality: Excellent. CSF Spaces: Basal cisterns are patent. No extra-axial fluid collections. Ventricles are normal in size and shape. Brain: No intracranial masses or hemorrhage. Lau/white matter interface is normal. Brainstem appe ars normal. Diffusion-weighted images demonstrate no acute ischemic insult. No chronic ischemic ins ults. Normal brain parenchyma for patient's age. Mild diffuse volume loss. Very minimal small vessel ischemic change. Normal intravascular flow voids are present. Skull and face: Calvarium has normal marrow signal. Orbits appear normal. Sinuses: Sinuses and mastoids are clear. IMPRESSION: Normal brain parenchyma for patient's age. No evidence acute intracranial abnormality. Reviewed by: Dillan Roca MD on 07/02/2022 9:04 AM PDT Approved by: Dillan Roca MD on 07/02/2022 9:04 AM PDT Station ID: [id number]
== END 2022-06-30 08:09 | disposition home or self-care (01) ==
LOC: DI 08:08
PROVIDERS: ATTEND Registered Nurse
DX: G31.84 Mild cognitive impairment of uncertain or unknown etiology (principal)

== ENCOUNTER 2022-12-24 09:39 | Outpatient (CLI) | payer MEDICARE ==
--- NOTE | 2022-12-24 12:24 | XRAY Report ---
PROCEDURE: Knee 4 View LT INDICATIONS: OSTEOARTHRITIS TECHNIQUE: 4 views of the left left knee radiographs 07/24/2022 knee(s) were acquired. COMPARISON: None. FINDINGS: Bones: Irregularity at the medial femoral condyle. Joint space narrowing most pronounced at the medial comp artment. Tiny osteophytes. No suspicious bony lesions. Soft tissues: Large knee joint effusion. No suspicious soft tissue calcifications or masses. Chondro calcinosis. IMPRESSION: New osteochondral defect at the medial left femoral condyle. Large joint effusion. Chondrocalcinosis. Reviewed by: Korey Dial MD on 12/24/2022 12:23 PM PDT Approved by: Korey Dial MD on 12/24/2022 12:23 PM PDT Station ID: [id number]
== END 2022-12-24 09:40 | disposition home or self-care (01) ==
LOC: DI.S 09:39
PROVIDERS: ATTEND Internal Medicine
DX: M17.12 Unilateral primary osteoarthritis, left knee (principal); M11.262 Other chondrocalcinosis, left knee; M25.462 Effusion, left knee

== ENCOUNTER 2023-04-10 08:34 | Outpatient (CLI) | payer MEDICARE | END 2023-04-10 23:59 | disposition EMS.NT | LOC: EMS 08:34 | DX: Z03.89 Encounter for observation for other suspected diseases and conditions ruled out (principal) ==

== ENCOUNTER 2023-05-13 08:00 | Outpatient (CLI) | payer MEDICARE ==
--- NOTE | 2023-05-13 15:56 | XRAY Report ---
PROCEDURE: Ribs w/PA Chest 3+V RT INDICATIONS: RIGHT SIDED CHEST PAIN TECHNIQUE: 2 views of the ribs were acquired, along with a single view chest. COMPARISON: None. FINDINGS: Surgical changes and devices: None. Bones and chest wall: No fractures or dislocations. No suspicious bony lesions. Overlying soft tis sues appear unremarkable. Lungs and pleura: No pleural effusions or pneumothorax. Lungs appear clear. Mediastinum: Mediastinal contours appear normal. Heart size is normal. IMPRESSION: No acute displaced rib fracture or pneumothorax. Reviewed by: Queenie Chavez MD on 05/13/2023 3:54 PM PST Approved by: Queenie Chavez MD on 05/13/2023 3:54 PM PST Station ID: [id number]
== END 2023-05-13 23:59 | disposition home or self-care (01) ==
LOC: DI.S 08:00
PROVIDERS: ATTEND Emergency Medicine
DX: R07.89 Other chest pain (principal)

== ENCOUNTER 2023-06-04 08:39 | Outpatient (CLI) | payer MEDICARE ==
--- NOTE | 2023-06-04 13:45 | CT Report ---
PROCEDURE: Thoracic Spine WO INDICATIONS: BACK PAIN TECHNIQUE: Noncontrast 3 mm thick sections acquired through the region of interest in the thoracic spine. Sagit eliza and coronal reformats were then constructed. For radiation dose reduction, the following was used : automated exposure control, adjustment of mA and/or kV according to patient size. COMPARISON: None. FINDINGS: Image quality: Excellent. Bones: There is normal overall bony alignment. No acute vertebral body compression fractures. No s uspicious sclerotic or lytic bony lesions. Central spinal canal is of normal overall caliber. Diffu se idiopathic skeletal hyperostosis. Moderate, multilevel disc height loss. Soft tissues: No paravertebral masses or hematomas. Visualized posteromedial lungs appear clear. IMPRESSION: No compression deformities. Moderate, multilevel degenerative disc disease, as expected for age. Diffuse idiopathic skeletal hyperostosis. Reviewed by: Alejandro Mora MD on 06/04/2023 1:44 PM PDT Approved by: Alejandro Mora MD on 06/04/2023 1:44 PM PDT Station ID: [id number]
== END 2023-06-04 08:40 | disposition home or self-care (01) ==
LOC: DI 08:39
PROVIDERS: ATTEND Emergency Medicine
DX: M51.34 Other intervertebral disc degeneration, thoracic region (principal); M48.14 Ankylosing hyperostosis [Forestier], thoracic region

== ENCOUNTER 2023-10-01 08:00 | Outpatient (CLI) | payer MEDICARE ==
--- NOTE | 2023-10-01 10:31 | XRAY Report ---
PROCEDURE: Chest 2V INDICATIONS: FOCAL PNEUMONIA TECHNIQUE: 2 views of the chest were acquired. COMPARISON: None. FINDINGS: Surgical changes and devices: None. Lungs and pleura: No pleural effusions or pneumothorax. Lungs are clear. Mediastinum: Mediastinal contours appear normal. Heart size is normal. Bones and chest wall: Osteopenia. DJD of the shoulders especially on the right. Bridging osteophytes of the spine. Overlying soft tissues appear unremarkable. IMPRESSION: No acute cardiopulmonary process. Reviewed by: Abelino Raphael MD on 10/01/2023 10:29 AM PDT Approved by: Abelino Raphael MD on 10/01/2023 10:29 AM PDT Station ID: [id number]
== END 2023-10-01 23:59 | disposition home or self-care (01) ==
LOC: DI.S 08:00
PROVIDERS: ATTEND Emergency Medicine
DX: J18.8 Other pneumonia, unspecified organism (principal)